=== PATIENT | male | born 1975 | race Two or more races ===

== ENCOUNTER 2017-09-15 11:02 | Emergency (ER) | payer BC, OTHER ==
[~2017-09-15] VITALS: Ht 165.1 cm; Wt 73.9 kg
[2017-09-15] MEDS ORDERED: Tetanus/Diptheria/Pertussis Vaccine 0.5ml Syr IM ONE (11:30)
[2017-09-15] MEDS ORDERED: Lidocaine 1% 10mg/ml/Epi 0.005mg/ml 10ml vial INJ ONE (12:30)
--- NOTE | 2017-09-15 13:01 | Emergency Room Report ---
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 last year here but no record in EMR Denies piece of metal/mesh broke off when he cut his hand Allergies: Coded Allergies: No Known Allergies (Unverified , 09/15/17) Patient History Past Medical History: none Past Surgical History: none Pertinent Family History: none Social History: Denies: smoking, alcohol use, drug use Immunizations: UTD Reviewed Nursing Documentation: PMH: Agreed, PSxH: Agreed Nursing Documentation-PMH Past Medical History: No Stated History Review of Systems All Other Systems: negative except mentioned in HPI Physical Exam Vital Signs Date Time Temp Pulse Resp B/P (MAP) Pulse Ox O2 Delivery O2 Flow Rate FiO2 09/15/17 11:09 97.9 97 18 129/85 95 Room Air Sp02 EP Interpretation: reviewed, normal General Appearance: normal inspection, well appearing, no apparent distress, alert, GCS 15, non-toxic Head: normocephalic, atraumatic Eyes: bilateral eye PERRL, bilateral eye EOMI ENT: normal ENT inspection, hearing grossly normal, normal voice Neck: normal inspection, full range of motion, supple, no bony tend Respiratory: normal inspection, lungs clear, normal breath sounds, no rhonchi, no respiratory distress, no retraction, no accessory muscle use, no wheezing, speaking full sentences Cardiovascular #1: regular rate, rhythm, no edema Gastrointestinal: normal inspection, normal bowel sounds, non tender, soft, no guarding, no hernia Genitourinary: no CVA tenderness Musculoskeletal: normal inspection, back normal, normal range of motion, Rosaura' s Sign negative, other - Right hand: dorsum with 3cm linear laceration, superficial, no FB. 1cm lac over ulnar wrist area, also superficial, no FB. 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 III-XII nml as tested, motor strength/tone normal, speech normal Procedures Laceration/Wound Repair Laceration/Wound Repair : Consent: Verbal Wound Location: other - Right hand Wound's Depth, Shape: superficial Wound Explored: clean Betadine Prep?: Yes Anesthesia: Lidocaine w/ Epi Wound Debrided: minimal Wound Repaired With: sutures Suture Size/Type: 5:0 Number of Sutures: 4 Layer Closure?: No Sterile Dressing Applied?: Yes Splint Applied?: No Sling Applied?: No Patient Tolerated: Well Complications: None Medical Decision Making Diagnostic Impression: Primary Impression: Laceration ER Course Sp primary repair in ED Tetanus updated Advised return in 7-10 days for suture removal DC home Last Vital Signs Date Time Temp Pulse Resp B/P (MAP) Pulse Ox O2 Delivery O2 Flow Rate FiO2 09/15/17 11:09 97.9 97 18 129/85 95 Room Air Status: improved Disposition: HOME, SELF-CARE Condition: Improved Referrals: [facility],REFERRING (PCP) Patient Instructions: Laceration Care, Adult Additional Instructions: Return in 7-10 days for suture removal BERNIE GALVIN M.D. Sep 15, 2017 13:01
[2017-09-15 13:05] VITALS: BP 151/91
== END 2017-09-15 13:05 | disposition home or self-care (01) ==
LOC: EMR 11:45
DX: S61.411A Laceration without foreign body of right hand, initial encounter (principal); Z23 Encounter for immunization; W45.8XXA Other foreign body or object entering through skin, initial encounter; Y93.9 Activity, unspecified; Y92.9 Unspecified place or not applicable
CPT/HCPCS: 90471; 90715; 99284